=== PATIENT | female | born 1990 | race Caucasian/White ===

== ENCOUNTER 2016-05-03 07:48 | Inpatient (IN) | payer BC ==
--- NOTE | 2016-05-03 10:36 | PCM.LDHP ---
L&D History of Present Illness - General Date of Service: 05/03/16 Admit Problem/Dx: Admission Diagnosis/Problem Admission Diagnosis/Problem Source of Information: Patient History Limitations: Reports: No limitations - History of Present Illness Introduction:: 25 y/o JOSE 05/11/16 EGDione 38w6d presented to L&D with contractions, patient sent from clinic after NST non-reactive. Exam performed and rupture of buldging bag of water occurred, cervix 4-5, 90, soft,mid, vtx-1 clear fluid, GBS negative Timing/Duration: Reports: hour(s): Location, : Reports: Abdomen, Lower back Improves with: Reports: None Worsens with: Reports: None Associated Symptoms: Reports: N - Related Data Allergies/Adverse Reactions: Allergies Allergy/AdvReac Type Severity Reaction Status Date / Time amoxicillin [Amoxicillin] Allergy Hives Verified 12/18/13 13:49 Home Medications: Home Meds . 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) Other OB/BYN History: vaginal delivery Social & Family History - Tobacco Use Smoking Status *Q: Never Smoker Years of Tobacco use: 1 Used Tobacco, but Quit: Yes Month Tobacco Last Used: 02/2006 Second Hand Smoke Exposure: No - Alcohol Use Days Per Week of Alcohol Use: 0 - Recreational Drug Use Recreational Drug Use: No H&P Review of Systems - Review of Systems: Review Of Systems: See Below General: Reports: no symptoms HEENT: Reports: no symptoms Pulmonary: Reports: No Symptoms Cardiovascular: Reports: no symptoms Gastrointestinal: Reports: No symptoms Genitourinary: Reports: no symptoms Musculoskeletal: Reports: no symptoms Skin: Reports: no symptoms Psychiatric: Reports: no symptoms Neurological: Reports: No Symptoms Hematologic/Lymphatic: Reports: no symptoms Immunologic: Reports: no symptoms L&D Exam - Exam Exam: See Below - Vital Signs Weight: 166 lb - OB Specific Fundal Height in cm: 38 Contraction Duration (sec): 5 Contraction Frequency (min): 60 Contraction Intensity: Moderate movement: active heart tones: present heart tones per min: 140 Heart Rate (FHR) Variability: Moderate (6-25 bmp) Presentation: Vertex - Mosley Score Mosley Score Cervix Position: Midposition Mosley Score Consistency: Soft Mosley Score Effacement: >80% Mosley Score Dilation: > 5 cm Mosley Score 's Station: -1 ,0 Mosley Score Total: 11 - Exam General: alert, oriented HEENT: Mucosa moist & pink Neck: supple, trachea midline Lungs: Clear to auscultation, Normal respiratory effort Cardiovascular: regular rate, regular rhythm Abdomen: normal bowel sounds, soft Genitourinary: Normal external exam Extremities: normal inspection Skin: warm, dry, intact Psychiatric: alert, normal affect, normal mood - Patient Data Lab Results last 24 hrs: Laboratory Results - last 24 hr 05/03/16 Range/Units 08:25 Urine Color Yellow (Yellow) Urine Appearance Clear (Clear) Urine pH 7.0 (5.0-8.0) Ur Specific [place] 1.015 (1.005-1.030) Urine Protein Negative (Negative) Urine Glucose (UA) Negative (Negative) Urine Ketones Negative (Negative) Urine Occult Blood Trace-intact H (Negative) Urine Nitrite Negative (Negative) Urine Bilirubin Negative (Negative) Urine Urobilinogen 0.2 (0.2-1.0) Ur Leukocyte Esterase Negative (Negative) - Problem List (1) 38 weeks gestation of SNOMED Code(s): 33888172 ICD Code: Z3A.38 - 38 WEEKS GESTATION OF Status: Acute Current Visit: Yes Problem List Initiated/Reviewed/Updated: No Assessment/Plan Comment:: plan delivery
[2016-05-03] MEDS ORDERED: Nalbuphine 20 MG/1 ML Amp IVPUSH PRN (10:37)
[2016-05-03] MEDS ORDERED: Ondansetron 4 MG/2 ML SDV IVPUSH PRN ×2 (10:37→11:31)
[2016-05-03] MEDS ORDERED: Sodium Chloride 0.9% 10 ML Syringe FLUSH PRN (10:37)
[2016-05-03] MEDS ORDERED: Lactated Ringers 1,000 ML IV SCH (10:45)
[2016-05-03] MEDS ORDERED: Oxytocin/Lactated Ringers 10 UNIT/1,000 ML BAG IV SCH ×2 (10:45→14:30)
[2016-05-03] MEDS: Lactated Ringers 1,000 ML ONE ×2 (10:51→10:54)
--- NOTE | 2016-05-03 10:55 | PCM.PREANE ---
Preanesthetic Assessment - Anesthesia/Transfusion/Family Hx Anesthesia History: Prior Anesthesia Without Reaction Family History of Anesthesia Reaction: No - Review of Systems General: No Symptoms Pulmonary: No Symptoms (ASTHMA- does not use inhaler ) Cardiovascular: No Symptoms Gastrointestinal: No symptoms Neurological: No Symptoms Other: Reports: Diabetes (gestational ) - Physical Assessment NPO Status Date: 05/02/16 NPO Status Time: 10:30 Pulse: 92 O2 Sat by Pulse Oximetry: 98 Respiratory Rate: 16 Blood Pressure: 128/70 Temperature: 36.9 C Height: 1.63 m Weight: 75.296 kg ASA Class: 2 Mental Status: Alert & Oriented x3 Airway Class: Mallampati = 1 Dentition: Reports: Normal Dentition Thyro-Mental Finger Breadths: 3 Mouth Opening Finger Breadths: 3 ROM/Head Extension: Full Lungs: Clear to auscultation, Normal respiratory effort Cardiovascular: Regular Rate, Regular Rhythm - Lab Values: Laboratory Last Values Urine Color Yellow (Yellow) 05/03/16 08:25 Urine Appearance Clear (Clear) 05/03/16 08:25 Urine pH 7.0 (5.0-8.0) 05/03/16 08:25 Ur Specific [place] 1.015 (1.005-1.030) 05/03/16 08:25 Urine Protein Negative (Negative) 05/03/16 08:25 Urine Glucose (UA) Negative (Negative) 05/03/16 08:25 Urine Ketones Negative (Negative) 05/03/16 08:25 Urine Occult Blood Trace-intact (Negative) H 05/03/16 08:25 Urine Nitrite Negative (Negative) 05/03/16 08:25 Urine Bilirubin Negative (Negative) 05/03/16 08:25 Urine Urobilinogen 0.2 (0.2-1.0) 05/03/16 08:25 Ur Leukocyte Esterase Negative (Negative) 05/03/16 08:25 - Allergies Allergies/Adverse Reactions: Allergies Allergy/AdvReac Type Severity Reaction Status Date / Time amoxicillin [Amoxicillin] Allergy Hives Verified 12/18/13 13:49 - Blood Blood Available: No Product(s) Available: None - Anesthesia Plan Pre-Op Medication Ordered: None - Acknowledgements Anesthesia Type Planned: Epidural Pt an Appropriate Candidate for the Planned Anesthesia: Yes Alternatives and Risks of Anesthesia Discussed w Pt/Guardian: Yes Pt/Guardian Understands and Agrees with Anesthesia Plan: Yes PreAnesthesia Questionnaire - Past Health History Medical/Surgical History: Denies 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 [No Known Home Meds] 02/16/15 [History] - CURRENT (IN HOUSE) MEDS Current Meds: Current Medications Lactated Ringer's (Ringers, Lactated) 1,000 mls @ 100 mls/hr IV ASDIRECTED MARGOTH Oxytocin/Lactated Ringer's (Pitocin In Lr 10 Units/1,000 Ml) 10 unit in 1,000 mls @ 500 mls/hr IV TITRATE MARGOTH Clindamycin Phosphate 900 mg/ (Sodium Chloride) 106 mls @ 100 mls/hr IV Q8H MARGOTH Nalbuphine HCl (Nubain) 10 mg IVPUSH Q2H PRN PRN Reason: Pain (moderate 4-6) Ondansetron HCl (Zofran) 4 mg IVPUSH Q4H PRN PRN Reason: Nausea/Vomiting Sodium Chloride (Saline Flush) 10 ml FLUSH ASDIRECTED PRN PRN Reason: Keep Vein Open Discontinued Medications Lactated Ringer's (Ringers, Lactated) Confirm Administered Dose 1,000 mls @ as directed .ROUTE .STK-MED ONE Stop: 05/03/16 10:31 Preanesthetic Assessment - ANESTHESIA/TRANSFUSION/FAMILY HX Anesthesia/Transfusion History: No Prior Anesthesia, No Prior Transfusion(s) Family History of Anesthesia Reaction: No Intubation History: Unknown - PHYSICAL ASSESSMENT Height: 1.63 m Weight: 75.296 kg - LAB Values: Laboratory Last Values Urine Color Yellow (Yellow) 05/03/16 08:25 Urine Appearance Clear (Clear) 05/03/16 08:25 Urine pH 7.0 (5.0-8.0) 05/03/16 08:25 Ur Specific [place] 1.015 (1.005-1.030) 05/03/16 08:25 Urine Protein Negative (Negative) 05/03/16 08:25 Urine Glucose (UA) Negative (Negative) 05/03/16 08:25 Urine Ketones Negative (Negative) 05/03/16 08:25 Urine Occult Blood Trace-intact (Negative) H 05/03/16 08:25 Urine Nitrite Negative (Negative) 05/03/16 08:25 Urine Bilirubin Negative (Negative) 05/03/16 08:25 Urine Urobilinogen 0.2 (0.2-1.0) 05/03/16 08:25 Ur Leukocyte Esterase Negative (Negative) 05/03/16 08:25 - ALLERGIES Allergies/Adverse Reactions: Allergies Allergy/AdvReac Type Severity Reaction Status Date / Time amoxicillin [Amoxicillin] Allergy Hives Verified 12/18/13 13:49
[2016-05-03] MEDS ORDERED: Clindamycin Phosphate 900 MG in Sodium Chloride 0.9% 100 ML IV SCH (11:00)
[2016-05-03] MEDS ORDERED: fentaNYL 100 MCG/2 ML SDV EPIDUR PRN ×2 (11:31→12:02)
[2016-05-03] MEDS ORDERED: ePHEDrine 50 MG/ML SDV IVPUSH PRN ×2 (11:31→12:02)
[2016-05-03] MEDS ORDERED: diphenhydrAMINE 50 MG/ML SDV IVPUSH PRN ×2 (11:31→12:02)
[2016-05-03] MEDS ORDERED: Bupivacaine/fentaNYL/NS 100 ML Bag EPIDUR SCH ×2 (11:45→12:15)
--- NOTE | 2016-05-03 15:29 | PCM.SN ---
- Free Text/Narrative Note: Cervix 8/100/soft/anterior. Vertex -1/-2 Cat I FHR with early decelerations. Head, beginning to descend into the pelvis
--- NOTE | 2016-05-03 16:56 | PCM.DEL ---
L & D Note - General Info Date of Service: 05/03/16 - Delivery Note Labor: spontaneous, augmented by ARM, augmented by oxytocin Delivery Outcome: Livebirth (Female liveborn JOJO daily [birth year]/03[birth year]2016 delivered at 1636, Apgars 8/9. Weight pending. Mother holding ) Infant Delivery Method: Spontaneous Vaginal Delivery Delivery Mode: Spontaneous Presentation: Right Occiput Anterior (JOJO) Nuchal cord: none Prep: povidone-iodine (betadine Anesthesia Type: Epidural Episiotomy Type: None Laceration: none Placenta: intact, spontaneous (Placenta delivered, Jeb at 1642 , intact exam and discarded. Eccentric cord insertion) Cord: 3 vessels Estimated blood loss: 250 Resuscitation needed: No [place]: suctioned, bulb syringe, stimulated, warmed, blanket used, warmer used Provider: Arvind García Score 1 min: 8 Score 5 min: 9 - Patient Data Vitals - most recent: Last Vital Signs Temp 98.4 F 05/03/16 11:02 Pulse 92 05/03/16 11:02 Resp 16 05/03/16 11:02 BP 128/70 05/03/16 11:02 Pulse Ox 98 05/03/16 11:02 Weight - most recent: 166 lb I&O - last 24 hours: Intake & Output 05/03/16 05/03/16 05/03/16 06:59 14:59 22:59 Intake Total 120 Balance 120 Lab Results last 24 hrs: Laboratory Results - last 24 hr 05/03/16 05/03/16 05/03/16 Range/Units 08:25 10:50 10:50 WBC 10.71 H (3.98-10.04) K/mm3 RBC 4.68 (3.98-5.22) M/mm3 Hgb 14.7 (11.2-15.7) gm/L Hct 44.7 (34.1-44.9) % MCV 95.5 H (79.4-94.8) fl MCH 31.4 (25.6-32.2) pg MCHC 32.9 (32.2-35.5) g/dl RDW Std Deviation 52.8 H (36.4-46.3) fL Plt Count 202 (182-369) K/mm3 MPV 10.0 (9.4-12.3) fl Neut % (Auto) 78.1 H (34.0-71.1) % Lymph % (Auto) 14.5 L (19.3-51.7) % [place] % (Auto) 6.8 (4.7-12.5) % Eos % (Auto) 0.3 L (0.7-5.8) Baso % (Auto) 0.1 (0.1-1.2) % Neut # 8.37 H (1.56-6.13) K/mm3 Lymph # 1.55 (1.18-3.74) K/mm3 [place] # 0.73 H (0.24-0.36) K/mm3 Eos # 0.03 L (0.04-0.36) K/mm3 Baso # 0.01 (0.01-0.08) K/mm3 Urine Color Yellow (Yellow) Urine Appearance Clear (Clear) Urine pH 7.0 (5.0-8.0) Ur Specific [place] 1.015 (1.005-1.030) Urine Protein Negative (Negative) Urine Glucose (UA) Negative (Negative) Urine Ketones Negative (Negative) Urine Occult Blood Trace-intact H (Negative) Urine Nitrite Negative (Negative) Urine Bilirubin Negative (Negative) Urine Urobilinogen 0.2 (0.2-1.0) Ur Leukocyte Esterase Negative (Negative) Blood Type A POSITIVE Gel Antibody Screen Negative Med Orders - Current: Current Medications Diphenhydramine HCl (Benadryl) 25 mg IVPUSH Q6H PRN PRN Reason: Pruritis Diphenhydramine HCl (Benadryl) 25 mg IVPUSH Q6H PRN PRN Reason: pruritis Ephedrine Sulfate (Ephedrine Sulfate) 5 mg IVPUSH ASDIRECTED PRN PRN Reason: Hypotension Ephedrine Sulfate (Ephedrine Sulfate) 5 mg IVPUSH ASDIRECTED PRN PRN Reason: Hypotension Fentanyl (Sublimaze) 100 mcg EPIDUR Q3H PRN PRN Reason: Pain Last Admin: 05/03/16 12:55 Dose: 100 mcg Fentanyl (Sublimaze) 100 mcg EPIDUR Q3H PRN PRN Reason: Pain Fentanyl/Bupivacaine HCl (Fentanyl/Bupivacaine/Ns 2 Mcg-0.125% 100 Ml) 100 ml EPIDUR ASDIRECTED MARGOTH Last Admin: 05/03/16 12:56 Dose: 100 ml Fentanyl/Bupivacaine HCl (Fentanyl/Bupivacaine/Ns 2 Mcg-0.125% 100 Ml) 100 ml EPIDUR ASDIRECTED MARGOTH Lactated Ringer's (Ringers, Lactated) 1,000 mls @ 100 mls/hr IV ASDIRECTED MARGOTH Last Admin: 05/03/16 15:07 Dose: 100 mls/hr Oxytocin/Lactated Ringer's (Pitocin In Lr 10 Units/1,000 Ml) 10 unit in 1,000 mls @ 500 mls/hr IV TITRATE MARGOTH Clindamycin Phosphate 900 mg/ (Sodium Chloride) 106 mls @ 100 mls/hr IV Q8H MARGOTH Last Admin: 05/03/16 11:02 Dose: 100 mls/hr Oxytocin/Lactated Ringer's (Pitocin In Lr 10 Units/1,000 Ml) 10 unit in 1,000 mls @ 12 mls/hr IV TITRATE MARGOTH; 2 MUNITS/MIN PRN Reason: Protocol Last Admin: 05/03/16 14:37 Dose: 2 munits/min, 12 mls/hr Nalbuphine HCl (Nubain) 10 mg IVPUSH Q2H PRN PRN Reason: Pain (moderate 4-6) Ondansetron HCl (Zofran) 4 mg IVPUSH Q4H PRN PRN Reason: Nausea/Vomiting Ondansetron HCl (Zofran) 4 mg IVPUSH ONETIME PRN PRN Reason: Nausea/Vomiting Sodium Chloride (Saline Flush) 10 ml FLUSH ASDIRECTED PRN PRN Reason: Keep Vein Open Discontinued Medications Lactated Ringer's (Ringers, Lactated) Confirm Administered Dose 1,000 mls @ as directed .ROUTE .STK-MED ONE Stop: 05/03/16 10:31 Last Admin: 05/03/16 10:54 Dose: Not Given - Problem List & Annotations (1) 38 weeks gestation of SNOMED Code(s): 01724645 Code(s): Z3A.38 - 38 WEEKS GESTATION OF Status: Acute Current Visit: Yes (2) Normal delivery at term SNOMED Code(s): 08405296 Code(s): O80 - ENCOUNTER FOR FULL-TERM UNCOMPLICATED DELIVERY Status: Acute Current Visit: Yes - Problem List Review Problem List Initiated/Reviewed/Updated: No - My Orders Last 24 Hours: My Active Orders 05/03/16 10:37 Patient Status [ADT] Routine Activity as Tolerated [RC] PFP Communication Order [RC] ASDIRECTED Notify Provider [RC] PFP Notify Provider [RC] PRN Vital Signs [RC] PER UNIT ROUTINE Nalbuphine [Nubain] 10 mg IVPUSH Q2H PRN Ondansetron [Zofran] 4 mg IVPUSH Q4H PRN Sodium Chloride 0.9% [Saline Flush] 10 ml FLUSH ASDIRECTED PRN Electronic Heart Tones Ext w TOCO [WOMSER] Routine Electronic Heart Tones Internal [WOMSER] Per Unit Routine Peripheral IV Insertion Adult [OM.PC] Routine Resuscitation Status Routine 05/03/16 10:38 Heart Tones [RC] ASDIRECTED Peripheral IV Care [RC] . DIRECTED 05/03/16 10:45 Lactated Ringers [Ringers, Lactated] 1,000 ml IV ASDIRECTED Oxytocin/Lactated Ringers [Pitocin in LR 10 Units/1,000 ML] 10 unit in 1,000 ml IV TITRATE 05/03/16 11:00 Clindamycin Phosphate [Cleocin] 900 mg Sodium Chloride 0.9% [Normal Saline] 100 ml IV Q8H 05/03/16 14:30 Oxytocin/Lactated Ringers [Pitocin in LR 10 Units/1,000 ML] 10 unit in 1,000 ml IV TITRATE 05/03/16 Lunch Clear Liquid Diet [DIET] - Plan Plan:: plan delivery
[2016-05-03] MEDS ORDERED: Benzocaine/Menthol 20%-0.5% Spray 56 GM Canister TOP PRN (17:34)
[2016-05-03] MEDS ORDERED: Witch Hazel Medicated Pads 100/Jar TOP PRN (17:34)
[2016-05-03] MEDS ORDERED: Acetaminophen/oxyCODONE 325-5 MG Tab PO PRN (17:34)
[2016-05-03] MEDS ORDERED: Lanolin 100% Cream 7 GM Tube TOP PRN (17:34)
[2016-05-03] MEDS ORDERED: Diphtheria,Pertussis(Acell),Tetanus Vaccine 0.5 ML SDV inactive IM ONE (19:22)
[2016-05-03] MEDS: Acetaminophen 325 MG Tab PO PRN (21:31)
[2016-05-04] MEDS: Ibuprofen 600 MG Tab PO PRN ×4 (05:08→22:52)
--- NOTE | 2016-05-04 07:32 | PCM48HPAN ---
Post Anesthesia Note - EVALUATION WITHIN 48HRS OF ANESTHETIC Vital Signs in Normal Range: Yes Patient Participated in Evaluation: Yes Respiratory Function Stable: Yes Airway Patent: Yes Cardiovascular Function Stable: Yes Hydration Status Stable: Yes Pain Control Satisfactory: Yes Nausea and Vomiting Control Satisfactory: Yes Mental Status Recovered: Yes - COMMENTS/OBSERVATIONS Free Text/Narrative:: 0710 05/04/2016 patient states, "slight numbness to top of my left thigh yet" encouragement given
--- NOTE | 2016-05-04 07:48 | PCM.DCSUM1 ---
Discharge Summary - Hospital Course Free Text/Narrative:: [facility] LIVE L/D Delivery Note Patient Name: QASIM BRASWELL Date of : 86 Patient Status: Inpatient Attending Provider: Arvind García Date: 05/03/16 16:49 Initialization Date: 05/03/16 16:49 L & D Note - General Info Date of Service: 05/03/16 - Delivery Note Labor: spontaneous, augmented by ARM, augmented by oxytocin Delivery Outcome: Livebirth (Female liveborn JOJO daily 05/03/2016 delivered at 1636, Apgars 8/9. Weight pending. Mother holding ) Delivery Method: Spontaneous Vaginal Delivery Infant Delivery Mode: Spontaneous Presentation: Right Occiput Anterior (JOJO) Nuchal cord: none Prep: povidone-iodine (betadine Anesthesia Type: Epidural Episiotomy Type: None Laceration: none Placenta: intact, spontaneous (Placenta delivered, Jeb at 1642 , intact exam and discarded. Eccentric cord insertion) Cord: 3 vessels Estimated blood loss: 250 Resuscitation needed: No [place]: suctioned, bulb syringe, stimulated, warmed, blanket used, warmer used Provider: Arvind García Score 1 min: 8 Score 5 min: 9 - Patient Data Vitals - most recent: Last Vital Signs Temp 98.4 F 05/03/16 11:02 Pulse 92 05/03/16 11:02 Resp 16 05/03/16 11:02 BP 128/70 05/03/16 11:02 Pulse Ox 98 05/03/16 11:02 Weight - most recent: 166 lb I&O - last 24 hours: Intake & Output 05/03/16 05/03/16 05/03/16 06:59 14:59 22:59 Intake Total 120 Balance 120 Lab Results last 24 hrs: Laboratory Results - last 24 hr 05/03/16 05/03/16 05/03/16 Range/Units 08:25 10:50 10:50 WBC 10.71 H (3.98-10.04) K/mm3 RBC 4.68 (3.98-5.22) M/mm3 Hgb 14.7 (11.2-15.7) gm/L Hct 44.7 (34.1-44.9) % MCV 95.5 H (79.4-94.8) fl MCH 31.4 (25.6-32.2) pg MCHC 32.9 (32.2-35.5) g/dl RDW Std Deviation 52.8 H (36.4-46.3) fL Plt Count 202 (182-369) K/mm3 MPV 10.0 (9.4-12.3) fl Neut % (Auto) 78.1 H (34.0-71.1) % Lymph % (Auto) 14.5 L (19.3-51.7) % [place] % (Auto) 6.8 (4.7-12.5) % Eos % (Auto) 0.3 L (0.7-5.8) Baso % (Auto) 0.1 (0.1-1.2) % Neut # 8.37 H (1.56-6.13) K/mm3 Lymph # 1.55 (1.18-3.74) K/mm3 [place] # 0.73 H (0.24-0.36) K/mm3 Eos # 0.03 L (0.04-0.36) K/mm3 Baso # 0.01 (0.01-0.08) K/mm3 Urine Color Yellow (Yellow) Urine Appearance Clear (Clear) Urine pH 7.0 (5.0-8.0) Ur Specific [place] 1.015 (1.005-1.030) Urine Protein Negative (Negative) Urine Glucose (UA) Negative (Negative) Urine Ketones Negative (Negative) Urine Occult Blood Trace-intact H (Negative) Urine Nitrite Negative (Negative) Urine Bilirubin Negative (Negative) Urine Urobilinogen 0.2 (0.2-1.0) Ur Leukocyte Esterase Negative (Negative) Blood Type A POSITIVE Gel Antibody Screen Negative Med Orders - Current: Current Medications Diphenhydramine HCl (Benadryl) 25 mg IVPUSH Q6H PRN PRN Reason: Pruritis Diphenhydramine HCl (Benadryl) 25 mg IVPUSH Q6H PRN PRN Reason: pruritis Ephedrine Sulfate (Ephedrine Sulfate) 5 mg IVPUSH ASDIRECTED PRN PRN Reason: Hypotension Ephedrine Sulfate (Ephedrine Sulfate) 5 mg IVPUSH ASDIRECTED PRN PRN Reason: Hypotension Fentanyl (Sublimaze) 100 mcg EPIDUR Q3H PRN PRN Reason: Pain Last Admin: 05/03/16 12:55 Dose: 100 mcg Fentanyl (Sublimaze) 100 mcg EPIDUR Q3H PRN PRN Reason: Pain Fentanyl/Bupivacaine HCl (Fentanyl/Bupivacaine/Ns 2 Mcg-0.125% 100 Ml) 100 ml EPIDUR ASDIRECTED MARGOTH Last Admin: 05/03/16 12:56 Dose: 100 ml Fentanyl/Bupivacaine HCl (Fentanyl/Bupivacaine/Ns 2 Mcg-0.125% 100 Ml) 100 ml EPIDUR ASDIRECTED MARGOTH Lactated Ringer's (Ringers, Lactated) 1,000 mls @ 100 mls/hr IV ASDIRECTED MARGOTH Last Admin: 05/03/16 15:07 Dose: 100 mls/hr Oxytocin/Lactated Ringer's (Pitocin In Lr 10 Units/1,000 Ml) 10 unit in 1,000 mls @ 500 mls/hr IV TITRATE [facility] Clindamycin Phosphate 900 mg/ (Sodium Chloride) 106 mls @ 100 mls/hr IV Q8H MARGOTH Last Admin: 05/03/16 11:02 Dose: 100 mls/hr Oxytocin/Lactated Ringer's (Pitocin In Lr 10 Units/1,000 Ml) 10 unit in 1,000 mls @ 12 mls/hr IV TITRATE [facility]; 2 MUNITS/MIN PRN Reason: Protocol Last Admin: 05/03/16 14:37 Dose: 2 munits/min, 12 mls/hr Nalbuphine HCl (Nubain) 10 mg IVPUSH Q2H PRN PRN Reason: Pain (moderate 4-6) Ondansetron HCl (Zofran) 4 mg IVPUSH Q4H PRN PRN Reason: Nausea/Vomiting Ondansetron HCl (Zofran) 4 mg IVPUSH ONETIME PRN PRN Reason: Nausea/Vomiting Sodium Chloride (Saline Flush) 10 ml FLUSH ASDIRECTED PRN PRN Reason: Keep Vein Open Discontinued Medications Lactated Ringer's (Ringers, Lactated) Confirm Administered Dose 1,000 mls @ as directed .ROUTE [facility] ONE Stop: 05/03/16 10:31 Last Admin: 05/03/16 10:54 Dose: Not Given - Problem List & Annotations (1) 38 weeks gestation of SNOMED Code(s): 00534133 Code(s): Z3A.38 - 38 WEEKS GESTATION OF Status: Acute Current Visit: Yes (2) Normal delivery at term SNOMED Code(s): 32850191 Code(s): O80 - ENCOUNTER FOR FULL-TERM UNCOMPLICATED DELIVERY Status: Acute Current Visit: Yes - Problem List Review Problem List Initiated/Reviewed/Updated: No - My Orders Last 24 Hours: My Active Orders 05/03/16 10:37 Patient Status [ADT] Routine Activity as Tolerated [RC] PFP Communication Order [RC] ASDIRECTED Notify Provider [RC] PFP Notify Provider [RC] PRN Vital Signs [RC] PER UNIT ROUTINE Nalbuphine [Nubain] 10 mg IVPUSH Q2H PRN Ondansetron [Zofran] 4 mg IVPUSH Q4H PRN Sodium Chloride 0.9% [Saline Flush] 10 ml FLUSH ASDIRECTED PRN Electronic Heart Tones Ext w TOCO [WOMSER] Routine Electronic Heart Tones Internal [WOMSER] Per Unit Routine Peripheral IV Insertion Adult [OM.PC] Routine Resuscitation Status Routine 05/03/16 10:38 Heart Tones [RC] ASDIRECTED Peripheral IV Care [RC] . DIRECTED 05/03/16 10:45 Lactated Ringers [Ringers, Lactated] 1,000 ml IV ASDIRECTED Oxytocin/Lactated Ringers [Pitocin in LR 10 Units/1,000 ML] 10 unit in 1,000 ml IV TITRATE 05/03/16 11:00 Clindamycin Phosphate [Cleocin] 900 mg Sodium Chloride 0.9% [Normal Saline] 100 ml IV Q8H 05/03/16 14:30 Oxytocin/Lactated Ringers [Pitocin in LR 10 Units/1,000 ML] 10 unit in 1,000 ml IV TITRATE 05/03/16 Lunch Clear Liquid Diet [DIET] - Plan Plan:: plan delivery HPI Initial Comments: [facility] LIVE L/D Delivery Note Patient Name: QASIM BRASWELL Date of : 86 Patient Status: Inpatient Attending Provider: Arvind García Date: 05/03/16 16:49 Initialization Date: 05/03/16 16:49 L & D Note - General Info Date of Service: 05/03/16 - Delivery Note Labor: spontaneous, augmented by ARM, augmented by oxytocin Delivery Outcome: Livebirth (Female liveborn JOJO daily 05/03/2016 delivered at 1636, Apgars 8/9. Weight pending. Mother holding ) Infant Delivery Method: Spontaneous Vaginal Delivery Delivery Mode: Spontaneous Presentation: Right Occiput Anterior (JOJO) Nuchal cord: none Prep: povidone-iodine (betadine Anesthesia Type: Epidural Episiotomy Type: None Laceration: none Placenta: intact, spontaneous (Placenta delivered, Jeb at 1642 3, intact exam and discarded. Eccentric cord insertion) Cord: 3 vessels Estimated blood loss: 250 Resuscitation needed: No [place]: suctioned, bulb syringe, stimulated, warmed, blanket used, warmer used Provider: Arvind García Score 1 min: 8 Score 5 min: 9 - Patient Data Vitals - most recent: Last Vital Signs Temp 98.4 F 05/03/16 11:02 Pulse 92 05/03/16 11:02 Resp 16 05/03/16 11:02 BP 128/70 05/03/16 11:02 Pulse Ox 98 05/03/16 11:02 Weight - most recent: 166 lb I&O - last 24 hours: Intake & Output 05/03/16 05/03/16 05/03/16 06:59 14:59 22:59 Intake Total 120 Balance 120 Lab Results last 24 hrs: Laboratory Results - last 24 hr 05/03/16 05/03/16 05/03/16 Range/Units 08:25 10:50 10:50 WBC 10.71 H (3.98-10.04) K/mm3 RBC 4.68 (3.98-5.22) M/mm3 Hgb 14.7 (11.2-15.7) gm/L Hct 44.7 (34.1-44.9) % MCV 95.5 H (79.4-94.8) fl MCH 31.4 (25.6-32.2) pg MCHC 32.9 (32.2-35.5) g/dl RDW Std Deviation 52.8 H (36.4-46.3) fL Plt Count 202 (182-369) K/mm3 MPV 10.0 (9.4-12.3) fl Neut % (Auto) 78.1 H (34.0-71.1) % Lymph % (Auto) 14.5 L (19.3-51.7) % [place] % (Auto) 6.8 (4.7-12.5) % Eos % (Auto) 0.3 L (0.7-5.8) Baso % (Auto) 0.1 (0.1-1.2) % Neut # 8.37 H (1.56-6.13) K/mm3 Lymph # 1.55 (1.18-3.74) K/mm3 [place] # 0.73 H (0.24-0.36) K/mm3 Eos # 0.03 L (0.04-0.36) K/mm3 Baso # 0.01 (0.01-0.08) K/mm3 Urine Color Yellow (Yellow) Urine Appearance Clear (Clear) Urine pH 7.0 (5.0-8.0) Ur Specific [place] 1.015 (1.005-1.030) Urine Protein Negative (Negative) Urine Glucose (UA) Negative (Negative) Urine Ketones Negative (Negative) Urine Occult Blood Trace-intact H (Negative) Urine Nitrite Negative (Negative) Urine Bilirubin Negative (Negative) Urine Urobilinogen 0.2 (0.2-1.0) Ur Leukocyte Esterase Negative (Negative) Blood Type A POSITIVE Gel Antibody Screen Negative Med Orders - Current: Current Medications Diphenhydramine HCl (Benadryl) 25 mg IVPUSH Q6H PRN PRN Reason: Pruritis Diphenhydramine HCl (Benadryl) 25 mg IVPUSH Q6H PRN PRN Reason: pruritis Ephedrine Sulfate (Ephedrine Sulfate) 5 mg IVPUSH ASDIRECTED PRN PRN Reason: Hypotension Ephedrine Sulfate (Ephedrine Sulfate) 5 mg IVPUSH ASDIRECTED PRN PRN Reason: Hypotension Fentanyl (Sublimaze) 100 mcg EPIDUR Q3H PRN PRN Reason: Pain Last Admin: 05/03/16 12:55 Dose: 100 mcg Fentanyl (Sublimaze) 100 mcg EPIDUR Q3H PRN PRN Reason: Pain Fentanyl/Bupivacaine HCl (Fentanyl/Bupivacaine/Ns 2 Mcg-0.125% 100 Ml) 100 ml EPIDUR ASDIRECTED MARGOTH Last Admin: 05/03/16 12:56 Dose: 100 ml Fentanyl/Bupivacaine HCl (Fentanyl/Bupivacaine/Ns 2 Mcg-0.125% 100 Ml) 100 ml EPIDUR ASDIRECTED MARGOTH Lactated Ringer's (Ringers, Lactated) 1,000 mls @ 100 mls/hr IV ASDIRECTED MARGOTH Last Admin: 05/03/16 15:07 Dose: 100 mls/hr Oxytocin/Lactated Ringer's (Pitocin In Lr 10 Units/1,000 Ml) 10 unit in 1,000 mls @ 500 mls/hr IV TITRATE MARGOTH Clindamycin Phosphate 900 mg/ (Sodium Chloride) 106 mls @ 100 mls/hr IV Q8H MARGOTH Last Admin: 05/03/16 11:02 Dose: 100 mls/hr Oxytocin/Lactated Ringer's (Pitocin In Lr 10 Units/1,000 Ml) 10 unit in 1,000 mls @ 12 mls/hr IV TITRATE MARGOTH; 2 MUNITS/MIN PRN Reason: Protocol Last Admin: 05/03/16 14:37 Dose: 2 munits/min, 12 mls/hr Nalbuphine HCl (Nubain) 10 mg IVPUSH Q2H PRN PRN Reason: Pain (moderate 4-6) Ondansetron HCl (Zofran) 4 mg IVPUSH Q4H PRN PRN Reason: Nausea/Vomiting Ondansetron HCl (Zofran) 4 mg IVPUSH ONETIME PRN PRN Reason: Nausea/Vomiting Sodium Chloride (Saline Flush) 10 ml FLUSH ASDIRECTED PRN PRN Reason: Keep Vein Open Discontinued Medications Lactated Ringer's (Ringers, Lactated) Confirm Administered Dose 1,000 mls @ as directed .ROUTE .STK-MED ONE Stop: 05/03/16 10:31 Last Admin: 05/03/16 10:54 Dose: Not Given - Problem List & Annotations (1) 38 weeks gestation of SNOMED Code(s): 14033612 Code(s): Z3A.38 - 38 WEEKS GESTATION OF Status: Acute Current Visit: Yes (2) Normal delivery at term SNOMED Code(s): 03347307 Code(s): O80 - ENCOUNTER FOR FULL-TERM UNCOMPLICATED DELIVERY Status: Acute Current Visit: Yes - Problem List Review Problem List Initiated/Reviewed/Updated: No - My Orders Last 24 Hours: My Active Orders 05/03/16 10:37 Patient Status [ADT] Routine Activity as Tolerated [RC] PFP Communication Order [RC] ASDIRECTED Notify Provider [RC] PFP Notify Provider [RC] PRN Vital Signs [RC] PER UNIT ROUTINE Nalbuphine [Nubain] 10 mg IVPUSH Q2H PRN Ondansetron [Zofran] 4 mg IVPUSH Q4H PRN Sodium Chloride 0.9% [Saline Flush] 10 ml FLUSH ASDIRECTED PRN Electronic Heart Tones Ext w TOCO [WOMSER] Routine Electronic Heart Tones Internal [WOMSER] Per Unit Routine Peripheral IV Insertion Adult [OM.PC] Routine Resuscitation Status Routine 05/03/16 10:38 Heart Tones [RC] ASDIRECTED Peripheral IV Care [RC] . DIRECTED 05/03/16 10:45 Lactated Ringers [Ringers, Lactated] 1,000 ml IV ASDIRECTED Oxytocin/Lactated Ringers [Pitocin in LR 10 Units/1,000 ML] 10 unit in 1,000 ml IV TITRATE 05/03/16 11:00 Clindamycin Phosphate [Cleocin] 900 mg Sodium Chloride 0.9% [Normal Saline] 100 ml IV Q8H 05/03/16 14:30 Oxytocin/Lactated Ringers [Pitocin in LR 10 Units/1,000 ML] 10 unit in 1,000 ml IV TITRATE 05/03/16 Lunch Clear Liquid Diet [DIET] - Plan Plan:: plan delivery Brief History: [facility] LIVE . L/D Delivery Note. Patient Name: QASIM BRASWELL Record Number: [id number]. Date of : Patient Status: Inpatient. Attending Provider: Arvind García Number: [id number]. Date: 05/03/16 16:49Initialization Date: 05/03/16 16:49. L & D Note. - General Info. Date of Service: 05/03/16. - Delivery Note. Labor: spontaneous, augmented by ARM, augmented by oxytocin. Delivery Outcome: Livebirth (Female liveborn JOJO daily 05/03/2016 delivered at 1636, Apgars 8/9. Weight pending. Mother holding ). Delivery Method: Spontaneous Vaginal Delivery. Delivery Mode: Spontaneous. Presentation: Right Occiput Anterior (JOJO). Nuchal cord: none. Prep: povidone-iodine ( betadine. Anesthesia Type: Epidural. Episiotomy Type: None. Laceration: none. Placenta: intact, spontaneous (Placenta delivered, Jeb at 1642 [id number], intact exam and discarded. Eccentric cord insertion). Cord: 3 vessels. Estimated blood loss: 250. Resuscitation needed: No. : suctioned, bulb syringe, stimulated, warmed, blanket used, warmer used. Provider: Arvind García. Score 1 min: 8. Score 5 min: 9. - Patient Data. Vitals - most recent: Last Vital Signs. Temp 98.4 F 05/03/16 11:02. Pulse 92 05/03/16 11:02. Resp 16 05/03/16 11:02. BP 128/70 05/03/16 11:02. Pulse Ox 98 05/03/16 11:02. Weight - most recent: 166 lb. I&O - last 24 hours: Intake & Output. 05/03/1702. 06:5914:5922:59. Intake [id number]. [id number]. Lab Results last 24 hrs: Laboratory Results - last 24 hr. 05/03/1702Range/Units. 08:2510:5010:50. WBC 10.71 H (3.98- 10.04) K/mm3. RBC 4.68 (3.98-5.22) M/mm3. Hgb 14.7 (11.2-15.7) gm/L. Hct 44.7 (34.1-44.9) %. MCV 95.5 H (79.4-94.8) fl. MCH 31.4 (25.6-32.2) pg. MCHC 32.9 (32.2-35.5) g/dl. RDW Std Deviation 52.8 H (36.4-46.3) fL. Plt Count 202 (182-369) K/mm3. MPV 10.0 (9.4-12.3) fl. Neut % (Auto) 78.1 H ( 34.0-71.1) %. Lymph % (Auto) 14.5 L (19.3-51.7) %. [place] % (Auto) 6.8 (4.7- 12.5) %. Eos % (Auto) 0.3 L (0.7-5.8). Baso % (Auto) 0.1 (0.1-1.2) %. Neut # 8.37 H (1.56-6.13) K/mm3. Lymph # 1.55 (1.18-3.74) K/mm3. [place] # 0.73 H ( 0.24-0.36) K/mm3. Eos # 0.03 L (0.04-0.36) K/mm3. Baso # 0.01 (0.01-0.08) K /mm3. Urine Color Yellow (Yellow). Urine Appearance Clear (Clear). Urine pH 7.0 (5.0-8.0). Ur Specific [place] 1.015 (1.005-1.030). Urine Protein Negative (Negative). Urine Glucose (UA) Negative (Negative). Urine Ketones Negative (Negative). Urine Occult Blood Trace-intact H (Negative). Urine Nitrite Negative (Negative). Urine Bilirubin Negative (Negative). Urine Urobilinogen 0.2 (0.2-1.0). Ur Leukocyte Esterase Negative (Negative). Blood Type A POSITIVE. Gel Antibody Screen Negative. Med Orders - Current: Current Medications. Diphenhydramine HCl (Benadryl) 25 mg IVPUSH Q6H PRN. PRN Reason : Pruritis. Diphenhydramine HCl (Benadryl) 25 mg IVPUSH Q6H PRN. PRN Reason: pruritis. Ephedrine Sulfate (Ephedrine Sulfate) 5 mg IVPUSH ASDIRECTED PRN. PRN Reason: Hypotension. Ephedrine Sulfate (Ephedrine Sulfate) 5 mg IVPUSH ASDIRECTED PRN. PRN Reason: Hypotension. Fentanyl (Sublimaze) 100 mcg EPIDUR Q3H PRN. PRN Reason: Pain. Last Admin: 05/03/16 12:55 Dose: 100 mcg. Fentanyl (Sublimaze) 100 mcg EPIDUR Q3H PRN. PRN Reason: Pain. Fentanyl/ Bupivacaine HCl (Fentanyl/Bupivacaine/Ns 2 Mcg-0.125% 100 Ml) 100 ml EPIDUR ASDIRECTED MARGOTH. Last Admin: 05/03/16 12:56 Dose: 100 ml. Fentanyl/ Bupivacaine HCl (Fentanyl/Bupivacaine/Ns 2 Mcg-0.125% 100 Ml) 100 ml EPIDUR ASDIRECTED MARGOTH. Lactated Ringer's (Ringers, Lactated) 1,000 mls @ 100 mls/hr IV ASDIRECTED MARGOTH. Last Admin: 05/03/16 15:07 Dose: 100 mls/hr. Oxytocin/ Lactated Ringer's (Pitocin In Lr 10 Units/1,000 Ml) 10 unit in 1,000 mls @ 500 mls/hr IV TITRATE MARGOTH. Clindamycin Phosphate 900 mg/ (Sodium Chloride) 106 mls @ 100 mls/hr IV Q8H MARGOTH. Last Admin: 05/03/16 11:02 Dose: 100 mls/hr. Oxytocin/Lactated Ringer's (Pitocin In Lr 10 Units/1,000 Ml) 10 unit in 1,000 mls @ 12 mls/hr IV TITRATE MARGOTH; 2 MUNITS/MIN. PRN Reason: Protocol. Last Admin : 05/03/16 14:37 Dose: 2 munits/min, 12 mls/hr. Nalbuphine HCl (Nubain) 10 mg IVPUSH Q2H PRN. PRN Reason: Pain (moderate 4-6). Ondansetron HCl (Zofran) 4 mg IVPUSH Q4H PRN. PRN Reason: Nausea/Vomiting. Ondansetron HCl (Zofran) 4 mg IVPUSH ONETIME PRN. PRN Reason: Nausea/Vomiting. Sodium Chloride (Saline Flush) 10 ml FLUSH ASDIRECTED PRN. PRN Reason: Keep Vein Open. Discontinued Medications. Lactated Ringer's (Ringers, Lactated) Confirm Administered Dose 1, 000 mls @ as directed .ROUTE .STK-MED ONE. Stop: 05/03/16 10:31. Last Admin: 05/03/16 10:54 Dose: Not Given. - Problem List & Annotations. (1) 38 weeks gestation of . SNOMED Code(s): 61564111. Code(s): Z3A.38 - 38 WEEKS GESTATION OF Status: Acute Current Visit: Yes. (2) Normal delivery at term. SNOMED Code(s): 79379628. Code(s): O80 - ENCOUNTER FOR FULL- TERM UNCOMPLICATED DELIVERY Status: Acute Current Visit: Yes. - Problem List Review. Problem List Initiated/Reviewed/Updated: No. - My Orders. Last 24 Hours: My Active Orders. 05/03/16 10:37. Patient Status [ADT] Routine. Activity as Tolerated [RC] PFP. Communication Order [RC] ASDIRECTED. Notify Provider [RC] PFP. Notify Provider [RC] PRN. Vital Signs [RC] PER UNIT ROUTINE. Nalbuphine [Nubain] 10 mg IVPUSH Q2H PRN. Ondansetron [Zofran] 4 mg IVPUSH Q4H PRN. Sodium Chloride 0.9% [Saline Flush] 10 ml FLUSH ASDIRECTED PRN. Electronic Heart Tones Ext w TOCO [WOMSER] Routine. Electronic Heart Tones Internal [WOMSER] Per Unit Routine. Peripheral IV Insertion Adult [OM.PC] Routine. Resuscitation Status Routine. 05/03/16 10: 38. Heart Tones [RC] ASDIRECTED. Peripheral IV Care [RC] . DIRECTED. 05/03/16 10:45. Lactated Ringers [Ringers, Lactated] 1,000 ml IV ASDIRECTED. Oxytocin/Lactated Ringers [Pitocin in LR 10 Units/1,000 ML] 10 unit in 1,000 ml IV TITRATE. 05/03/16 11:00. Clindamycin Phosphate [Cleocin] 900 mg Sodium Chloride 0.9% [Normal Saline] 100 ml IV Q8H. 05/03/16 14:30. Oxytocin/ Lactated Ringers [Pitocin in LR 10 Units/1,000 ML] 10 unit in 1,000 ml IV TITRATE. 05/03/16 Lunch. Clear Liquid Diet [DIET]. - Plan. Plan:: plan delivery - Discharge Data Discharge Date: 05/04/16 Discharge Disposition: Home, Self-Care 01 Condition: Good - Discharge Diagnosis/Problem(s) (1) 38 weeks gestation of SNOMED Code(s): 53308016 ICD Code: Z3A.38 - 38 WEEKS GESTATION OF Status: Acute Current Visit: Yes (2) Normal delivery at term SNOMED Code(s): 30672879 ICD Code: O80 - ENCOUNTER FOR FULL-TERM UNCOMPLICATED DELIVERY Status: Acute Current Visit: Yes - Patient Summary/Data Complications: None Consults: None Hospital Course: Uneventful - Patient Instructions Diet: Heart Healthy Diet Driving: Do Not Drive Showering/Bathing: May Shower Notify Provider of: Fever, Increased Pain, Swelling and Redness, Drainage, Nausea and/or Vomiting - Discharge Plan Home Medications: Home Meds Acetaminophen [Tylenol] 650 mg PO Q6H PRN #0 tablet 05/04/16 [Rx] Benzocaine/Menthol [Dermoplast Pain Relief [place]] 1 spray TOP ASDIRECTED PRN #0 canister 05/04/16 [Rx] Docusate Sodium [Colace] 100 mg PO BID PRN #0 cap 05/04/16 [Rx] Ibuprofen [IJD: Ibuprofen] 200 - 600 mg PO Q6H PRN #0 tablet 05/04/16 [Rx] Witch Erendira [Tucks] 1 pad TOP ASDIRECTED PRN #0 pad 05/04/16 [Rx] Referrals: Elfego Rizvi MD [Physician] - (Appointment with Dr. Rizvi, in 5-6 weeks) - Discharge Summary/Plan Comment DC Time >30 min.: No - Patient Data Vitals - Most Recent: Last Vital Signs Temp 97.3 F 05/04/16 04:58 Pulse 87 05/04/16 04:58 Resp 16 05/04/16 04:58 BP 115/80 05/04/16 04:58 Pulse Ox 97 05/04/16 04:58 Weight - Most Recent: 166 lb I&O - Last 24 hours: Intake & Output 05/03/16 05/04/16 05/04/16 22:59 06:59 14:59 Intake Total 120 Balance 120 Lab Results - Last 24 hrs: Laboratory Results - last 24 hr 05/03/16 05/03/16 05/03/16 Range/Units 08:25 10:50 10:50 WBC 10.71 H (3.98-10.04) K/mm3 RBC 4.68 (3.98-5.22) M/mm3 Hgb 14.7 (11.2-15.7) gm/L Hct 44.7 (34.1-44.9) % MCV 95.5 H (79.4-94.8) fl MCH 31.4 (25.6-32.2) pg MCHC 32.9 (32.2-35.5) g/dl RDW Std Deviation 52.8 H (36.4-46.3) fL Plt Count 202 (182-369) K/mm3 MPV 10.0 (9.4-12.3) fl Neut % (Auto) 78.1 H (34.0-71.1) % Lymph % (Auto) 14.5 L (19.3-51.7) % [place] % (Auto) 6.8 (4.7-12.5) % Eos % (Auto) 0.3 L (0.7-5.8) Baso % (Auto) 0.1 (0.1-1.2) % Neut # 8.37 H (1.56-6.13) K/mm3 Lymph # 1.55 (1.18-3.74) K/mm3 [place] # 0.73 H (0.24-0.36) K/mm3 Eos # 0.03 L (0.04-0.36) K/mm3 Baso # 0.01 (0.01-0.08) K/mm3 Urine Color Yellow (Yellow) Urine Appearance Clear (Clear) Urine pH 7.0 (5.0-8.0) Ur Specific [place] 1.015 (1.005-1.030) Urine Protein Negative (Negative) Urine Glucose (UA) Negative (Negative) Urine Ketones Negative (Negative) Urine Occult Blood Trace-intact H (Negative) Urine Nitrite Negative (Negative) Urine Bilirubin Negative (Negative) Urine Urobilinogen 0.2 (0.2-1.0) Ur Leukocyte Esterase Negative (Negative) Blood Type A POSITIVE Gel Antibody Screen Negative 05/04/16 Range/Units 05:54 WBC 11.31 H (3.98-10.04) K/mm3 RBC 3.94 L (3.98-5.22) M/mm3 Hgb 12.4 (11.2-15.7) gm/L Hct 38.2 (34.1-44.9) % MCV 97.0 H (79.4-94.8) fl MCH 31.5 (25.6-32.2) pg MCHC 32.5 (32.2-35.5) g/dl RDW Std Deviation 53.4 H (36.4-46.3) fL Plt Count 179 L (182-369) K/mm3 MPV 10.3 (9.4-12.3) fl Neut % (Auto) 69.8 (34.0-71.1) % Lymph % (Auto) 20.4 (19.3-51.7) % [place] % (Auto) 8.8 (4.7-12.5) % Eos % (Auto) 0.7 (0.7-5.8) Baso % (Auto) 0.1 (0.1-1.2) % Neut # 7.90 H (1.56-6.13) K/mm3 Lymph # 2.31 (1.18-3.74) K/mm3 [place] # 0.99 H (0.24-0.36) K/mm3 Eos # 0.08 (0.04-0.36) K/mm3 Baso # 0.01 (0.01-0.08) K/mm3 Urine Color (Yellow) Urine Appearance (Clear) Urine pH (5.0-8.0) Ur Specific [place] (1.005-1.030) Urine Protein (Negative) Urine Glucose (UA) (Negative) Urine Ketones (Negative) Urine Occult Blood (Negative) Urine Nitrite (Negative) Urine Bilirubin (Negative) Urine Urobilinogen (0.2-1.0) Ur Leukocyte Esterase (Negative) Blood Type Gel Antibody Screen Med Orders - Current: Current Medications Acetaminophen (Tylenol) 650 mg PO Q4H PRN PRN Reason: mild pain or fever Last Admin: 05/03/16 21:31 Dose: 650 mg Benzocaine/Menthol (Dermoplast Pain Relief [place]) 0 gm TOP ASDIRECTED PRN PRN Reason: Perineal Comfort Measure Docusate Sodium (Colace) 100 mg PO BID PRN PRN Reason: Constipation Emollient Ointment (Lansinoh Hpa) 0 gm TOP ASDIRECTED PRN PRN Reason: Sore Nipples Ibuprofen (Motrin) 600 mg PO Q4H PRN PRN Reason: Mild pain or fever Last Admin: 05/04/16 05:08 Dose: 600 mg Oxycodone/Acetaminophen (Percocet 325-5 Mg) 2 tab PO Q4H PRN PRN Reason: Pain (moderate 4-6) Witch Erendira (Tucks) 1 pad TOP ASDIRECTED PRN PRN Reason: Hemorrhoid pain Discontinued Medications Diphenhydramine HCl (Benadryl) 25 mg IVPUSH Q6H PRN PRN Reason: Pruritis Diphenhydramine HCl (Benadryl) 25 mg IVPUSH Q6H PRN PRN Reason: pruritis Diphtheria/Tetanus/Acell Pertussis (Boostrix) 0.5 ml IM .ONCE ONE Stop: 05/03/16 19:23 Last Admin: 05/04/16 05:13 Dose: 0.5 ml Ephedrine Sulfate (Ephedrine Sulfate) 5 mg IVPUSH ASDIRECTED PRN PRN Reason: Hypotension Ephedrine Sulfate (Ephedrine Sulfate) 5 mg IVPUSH ASDIRECTED PRN PRN Reason: Hypotension Fentanyl (Sublimaze) 100 mcg EPIDUR Q3H PRN PRN Reason: Pain Last Admin: 05/03/16 12:55 Dose: 100 mcg Fentanyl (Sublimaze) 100 mcg EPIDUR Q3H PRN PRN Reason: Pain Fentanyl/Bupivacaine HCl (Fentanyl/Bupivacaine/Ns 2 Mcg-0.125% 100 Ml) 100 ml EPIDUR ASDIRECTED [facility] Last Admin: 05/03/16 12:56 Dose: 100 ml Fentanyl/Bupivacaine HCl (Fentanyl/Bupivacaine/Ns 2 Mcg-0.125% 100 Ml) 100 ml EPIDUR ASDIRECTED [facility] Lactated Ringer's (Ringers, Lactated) Confirm Administered Dose 1,000 mls @ as directed .ROUTE .STK-MED ONE Stop: 05/03/16 10:31 Last Admin: 05/03/16 10:54 Dose: Not Given Lactated Ringer's (Ringers, Lactated) 1,000 mls @ 100 mls/hr IV ASDIRECTED [facility] Last Admin: 05/03/16 15:07 Dose: 100 mls/hr Oxytocin/Lactated Ringer's (Pitocin In Lr 10 Units/1,000 Ml) 10 unit in 1,000 mls @ 500 mls/hr IV TITRATE [facility] Clindamycin Phosphate 900 mg/ (Sodium Chloride) 106 mls @ 100 mls/hr IV Q8H MARGOTH Last Admin: 05/03/16 11:02 Dose: 100 mls/hr Oxytocin/Lactated Ringer's (Pitocin In Lr 10 Units/1,000 Ml) 10 unit in 1,000 mls @ 12 mls/hr IV TITRATE MARGOTH; 2 MUNITS/MIN PRN Reason: Protocol Last Admin: 05/03/16 14:37 Dose: 2 munits/min, 12 mls/hr Nalbuphine HCl (Nubain) 10 mg IVPUSH Q2H PRN PRN Reason: Pain (moderate 4-6) Ondansetron HCl (Zofran) 4 mg IVPUSH Q4H PRN PRN Reason: Nausea/Vomiting Ondansetron HCl (Zofran) 4 mg IVPUSH ONETIME PRN PRN Reason: Nausea/Vomiting Sodium Chloride (Saline Flush) 10 ml FLUSH ASDIRECTED PRN PRN Reason: Keep Vein Open *Q Meaningful Use (DIS) - VTE *Q VTE Criteria *Q: - Stroke *Q Stroke Criteria *Q: - AMI *Q AMI Criteria *Q:
[2016-05-04] MEDS ORDERED: Bupivacaine 0.25% 10 ML SDV ONE (17:34)
[2016-05-04] MEDS: Docusate Sodium 100 MG Cap PO PRN (20:56)
[2016-05-05] MEDS: Ibuprofen 600 MG Tab PO PRN ×2 (04:31→09:13)
[2016-05-05] MEDS: Docusate Sodium 100 MG Cap PO PRN (09:14)
[2016-05-05] MEDS: Acetaminophen 325 MG Tab PO PRN (11:34)
[2016-05-05 11:38] VITALS: BP 136/79
== END 2016-05-05 13:30 | disposition home or self-care (01) | DRG 560 ==
LOC: JD.WOMH 07:48 → JD.OB 09:52 → JD.WOMH 10:36 → JD.OB 10:37 → OBSVTOIN 16:36
PROVIDERS: ADMIT Obstetrics & Gynecology; ATTEND Obstetrics & Gynecology
PROC: 10E0XZZ Delivery of Products of Conception, External Approach (ICD-10-PCS; principal; 2016-05-03)
PROC: 00HU33Z Insertion of Infusion Device into Spinal Canal, Percutaneous Approach (ICD-10-PCS; 2016-05-03)
PROC: 3E0R3CZ (ICD-10-PCS; 2016-05-03)
DX: O80 Encounter for full-term uncomplicated delivery (principal); Z3A.38 38 weeks gestation of pregnancy; Z37.0 Single live birth; Z87.891 Personal history of nicotine dependence; Z88.1 Allergy status to other antibiotic agents
CPT/HCPCS: 36415; 81003; 85025; 86850; 86900; 86901; 90715; A9270-GY; J2590; J3010; J7030; J7120

== ENCOUNTER 2017-07-20 11:27 | Emergency (ER) | payer BC ==
[2017-07-20 11:39] VITALS: BP 141/88
[2017-07-20] MEDS ORDERED: Alum Hydrox/Mag Hydrox/Simeth 30 ML, Lidocaine 2% 15 ML PO ONE ×2 (12:01)
--- NOTE | 2017-07-20 12:15 | EDM.PDOC ---
ED HPI GENERAL MEDICAL PROBLEM - General Chief Complaint: General Stated Complaint: CHEST PAIN Time Seen by Provider: 07/20/17 11:43 Source of Information: Reports: Patient History Limitations: Reports: No Limitations - History of Present Illness INITIAL COMMENTS - FREE TEXT/NARRATIVE: Patient is a 26-year-old female who presents to the ED complaining of left- sided pleuritic chest discomfort and epigastric pain. Patient states this has been going on for the past month. Has intermittent sharp burning type discomfort reproducible with any movements and also pressure. At times she's felt dizzy and lightheaded. She's been experiencing increased anxiety lately. She was evaluated 2 days ago by her [employer] provider placed on Lexapro. She states anxiety has improved but pain persist. States last night consumed a glass of wine precipitating this discomfort to the epigastric region that radiated out into her anterior chest. She denies any acid reflux. She has a history of acid reflux while being . She denies any cough, shortness of breath, fever, bruising or swelling, rash, prior history as such, redness, recent trauma or activity causing this, history of DVT/PE, hemoptysis, dysuria, pain or swelling to lower extremities, or any additional complaints. Patient currently on Lexapro for anxiety and depression. There is no surgical history. She does not smoke. No recreational drug use. Alcohol use occasionally. Treatments [employer]: Reports: Other (see below) Other Treatments [employer]: clinic - Related Data Allergies Allergy/AdvReac Type Severity Reaction Status Date / Time amoxicillin [Amoxicillin] Allergy Hives Verified 07/20/17 11:39 Home Meds: Home Meds Escitalopram Oxalate 1 tab PO DAILY 07/20/17 [History] Past Medical History - Past Health History Medical/Surgical History: Denies Medical/Surgical History D[employer] C[employer] SAWYER History: Reports: Other OB/BYN History: vaginal delivery Psychiatric History: Reports: Anxiety Endocrine/Metabolic History: Reports: Diabetes, Gestational - Past Surgical History Endocrine Surgical History: Reports: None Social & Family History - Family History Family Medical History: Noncontributory - Tobacco Use Smoking Status *Q: Never Smoker Second Hand Smoke Exposure: No - Caffeine Use Caffeine Use: Reports: None - Recreational Drug Use Recreational Drug Use: No ED ROS GENERAL - Review of Systems Review Of Systems: ROS reveals no pertinent complaints other than HPI. ED EXAM, GENERAL - Physical Exam Exam: See Below Exam Limited By: No Limitations General Appearance: Alert, WD/WN, No Apparent Distress Ears: Hearing Grossly Normal Nose: Normal Inspection Throat/Mouth: Normal Voice, No Airway Compromise Head: Atraumatic, Normocephalic Neck: Normal Inspection, Supple Respiratory/Chest: No Respiratory Distress, Lungs Clear, Normal Breath Sounds, No Accessory Muscle Use, Other (faint tenderness along the 3 and 4th intercostal mid clavicular on the left side with palpaiton. no other concerning findings. ) Cardiovascular: Normal Peripheral Pulses, Regular Rate, Rhythm, No Murmur Peripheral Pulses: 4+: Radial (L), Radial (R) GI/Abdominal: Normal Bowel Sounds, Soft, Non-Tender, No Organomegaly, No Distention Back Exam: Normal Inspection Extremities: Normal Inspection, Normal Range of Motion, Non-Tender, No Pedal Edema, Normal Capillary Refill Neurological: Alert, Oriented, CN II-XII Intact, Normal Cognition, No Motor/ Sensory Deficits Psychiatric: Normal Affect, Normal Mood Skin Exam: Warm, Dry, Intact, Normal Color Course - Vital Signs Last Recorded V/S: Last Vital Signs Temp 97.8 F 07/20/17 11:30 Pulse 80 07/20/17 11:30 Resp 18 07/20/17 11:30 BP 141/88 H 07/20/17 11:30 Pulse Ox 96 07/20/17 11:30 - Orders/Labs/Meds Labs: Laboratory Tests 07/20/17 07/20/17 07/20/17 Range/Units 12:30 12:30 12:30 D-Dimer, Quantitative < 0.19 L (0.19-0.50) mg/L C-Reactive Protein < 0.2 (<1.0) mg/dL Lipase 176 (73-393) U/L HCG, Qual Negative (NEGATIVE) Meds: Medications Discontinued Medications Generic Name Dose Route Start Last Admin Trade Name Freq PRN Reason Stop Dose Admin Al Hydroxide/Mg Hydroxide 30 0 ml 07/20/17 12:01 07/20/17 12:10 ml/ Lidocaine HCl 15 ml PO 07/20/17 12:02 45 ml ONETIME ONE Administration - Re-Assessments/Exams Free Text/Narrative Re-Assessment/Exam: Reviewed labs obtained yesterday. CBC, CMP, TSH, and a hemoglobin A1c with no concerrning findings noted. Will order a d-dimer, HCG, CRP, lipase, chest x-ray, and GI cocktail. Suspect cause of pain is associated with acid reflux with alcohol use and also a component of chest wall discomfort. Vital signs are stable. This has been going on for the past month. Thus is why I'm ordering the d-dimer to rule out PE. EKG obtained sinus rhythm at a rate of 79 with MN interval 148 and QTc 427. No acute ST changes noted. 07/20/17 13:17D-dimer within normal limits. CRP within normal limits. Lipase normal. HCG negative. Chest x-ray: Reviewed with no acute abdomen abnormalities noted. Discussed results with the patient. Patient states the mild epigastric pain subsided with the GI cocktail. Thus will place the patient on Prilosec 20 mg every day with Zantac 150 at night as needed. Still complains some left mid clavicular third fourth intercostal chest discomfort mild in nature worse with palpation. Suspect this is more likely chest wall pain thus anti-inflammatories will be the treatment. In addition I do suspect there is a component of increasing anxiety contributing to some of her symptoms. Thus she I have instructed her to continue taking the Lexapro as prescribed. I advised that it may take 4-6 weeks 4 this medication to to reach full effectiveness. Patient will be discharged home with instructions as documented. Departure - Departure Time of Disposition: 13:36 Disposition: Home, Self-Care 01 Condition: Good Clinical Impression: Dyspepsia, Left-sided chest wall pain - Discharge Information Instructions: Chest Wall Pain, [id number] Referrals: Claudia Kapadia TRADE SPECIALIST [Primary Care Provider] - Forms: ED Department Discharge Additional Instructions: Take Prilosec 20 mg every day half-hour prior to eating breakfast in the a.m. May use Zantac 150 milligrams at at bedtime as well for dyspepsia. Refrain from any foods or liquids that cause aggravation. Do not eat or drink within 4 hours of going to bed. In addition suspect discomfort to the left side of the chest is muscle skeletal in nature. Treatment will be anti-inflammatories, Aleve one tablet twice a day and refrain from any activities that cause worsening pain. Continue taking the Lexapro as prescribed. Follow-up with primary care provider next week for reevaluation. Return to the ED if you develop any new or worsening symptoms.
--- NOTE | 2017-07-20 14:00 | CR ---
Chest: Portable view of the chest was obtained. Comparison: No prior chest x-ray. Small azygous lobe is seen. Heart size and mediastinum are normal. Lungs are clear with no acute parenchymal densities. Bony structures are grossly intact. Impression: 1. Nothing acute is seen on portable chest x-ray. Diagnostic code #2
== END 2017-07-20 14:00 | disposition home or self-care (01) ==
LOC: JD.ED 11:27
DX: R10.13 Epigastric pain (principal); Z88.1 Allergy status to other antibiotic agents
CPT/HCPCS: 36415; 71045; 83690; 84703; 85379; 86140; 99285; A9270; 99283

== ENCOUNTER 2018-07-24 11:43 | Inpatient (IN) | payer BC ==
[2018-07-24] MEDS ORDERED: Oxytocin/Lactated Ringers 10 UNIT/1,000 ML BAG IV SCH (12:15)
[2018-07-24] MEDS ORDERED: Nalbuphine 20 MG/ML 1 ML Syringe IVPUSH PRN (12:15)
[2018-07-24] MEDS ORDERED: Lactated Ringers 1,000 ML IV SCH (12:15)
[2018-07-24] MEDS ORDERED: Sodium Chloride 0.9% 10 ML Syringe FLUSH PRN (12:15)
[2018-07-24] MEDS ORDERED: Ondansetron 4 MG/2 ML SDV IVPUSH PRN (12:15)
--- NOTE | 2018-07-24 12:15 | PCM.LDHP ---
L&D History of Present Illness - General Date of Service: 07/24/18 Admit Problem/Dx: Admission Diagnosis/Problem Admission Diagnosis/Problem Source of Information: Patient History Limitations: Reports: No Limitations - History of Present Illness Introduction:: Patient is a 27 y/o at 39 0/7 wks who presents in labor. Contractions had started early Monday AM. Was seen in clinic yesterday and found to be 3 cm dilated. Was advised to continue to monitor and return when contractions worsened. Presents today now with stronger contractions worsening today. No bleeding or LOF - Related Data Allergies/Adverse Reactions: Allergies Allergy/AdvReac Type Severity Reaction Status Date / Time amoxicillin [Amoxicillin] Allergy Hives Verified 07/20/17 11:39 Home Medications: Home Meds L.acidoph,Paracasei, B.lactis [Probiotic] 1 each PO DAILY 07/24/18 [History] Vits #93/Iron Fum/FA [ Formula Tablet] 1 tab PO DAILY 07/24/18 [History] Past Medical History CAR CARDER History: Reports: : 3 Para: 2 LMP (Approximate): Psychiatric History: Reports: Anxiety Endocrine/Metabolic History: Reports: Diabetes, Gestational (2017) - Past Surgical History HEENT Surgical History: Reports: Myringotomy w Tube(s) Endocrine Surgical History: Reports: None Social & Family History - Family History Family Medical History: Noncontributory - Tobacco Use Smoking Status *Q: Never Smoker - Caffeine Use Caffeine Use: Reports: None - Alcohol Use Alcohol Use History: No - Recreational Drug Use Recreational Drug Use: No H&P Review of Systems - Review of Systems: Review Of Systems: See Below General: Reports: No Symptoms Pulmonary: Reports: No Symptoms Cardiovascular: Reports: No Symptoms Gastrointestinal: Reports: No Symptoms Genitourinary: Reports: No Symptoms Musculoskeletal: Reports: No Symptoms Psychiatric: Reports: No Symptoms Neurological: Reports: No Symptoms L&D Exam - Exam Exam: See Below - OB Specific Contraction Intensity: Moderate to Strong Movement: Active Heart Tones: Present Heart Tones per Min: 145 Heart Rate (FHR) Variability: Moderate (6-25 bmp) Presentation: Vertex - Mosley Score Mosley Score Cervix Position: Anterior Mosley Score Consistency: Soft Mosley Score Effacement: >80% Mosley Score Dilation: > 5 cm - Exam General: Alert, Oriented, Cooperative Lungs: Clear to Auscultation, Normal Respiratory Effort Cardiovascular: Regular Rate, Regular Rhythm GI/Abdominal Exam: Soft, Non-Tender Genitourinary: Normal external exam - Patient Data Result Diagrams: 07/24/18 12:53 - Problem List (1) 39 weeks gestation of SNOMED Code(s): 35840237 ICD Code: Z3A.39 - 39 WEEKS GESTATION OF Status: Acute Current Visit: Yes (2) Normal labor SNOMED Code(s): 36974151 ICD Code: O80 - ENCOUNTER FOR FULL-TERM UNCOMPLICATED DELIVERY; Z37.9 - OUTCOME OF DELIVERY, UNSPECIFIED Status: Acute Current Visit: Yes Problem List Initiated/Reviewed/Updated: Yes Assessment/Plan Comment:: Presents in labor. Initial assessment 4-5 cm and then 20 minutes later completely dilated * Labs done * GBS negative * Anticipate
--- NOTE | 2018-07-24 13:24 | PCM.DEL ---
L & D Note - General Info Date of Service: 07/24/18 - Delivery Note Labor: Spontaneous Delivery Outcome: Livebirth Delivery Method: Spontaneous Vaginal Delivery-Single Delivery Mode: Spontaneous Presentation: Left Occiput Anterior (RADHA) Nuchal Cord: None Anesthesia Type: None Amniotic Fluid Description: Clear Episiotomy Type: None Laceration: None Placenta: Intact, Spontaneous Cord: 3 Vessels Estimated Blood Loss: 200 : Bulb Syringe, Stimulated, Warmed, [place] Used Delivery Comments (Free Text/Narrative):: Patient found to be complete and began pushing. With maternal pushing effort head delivered from RADHA presentation. No nuchal cord present. With gentle downward traction the shoulders and body delivered. placed on maternal abdomen. Cord clamped and cut. Cord blood obtained. Placenta allowed time to separate and expelled intact. Inspection of the perineum shows no lacerations - General Info Date of Service: 07/24/18 - Patient Data Lab Results Last 24 Hours: Laboratory Results - last 24 hr 07/24/18 Range/Units 12:53 WBC 8.57 (3.98-10.04) K/mm3 RBC 4.25 (3.98-5.22) M/mm3 Hgb 13.7 D (11.2-15.7) gm/L Hct 40.8 (34.1-44.9) % MCV 96.0 H D (79.4-94.8) fl MCH 32.2 (25.6-32.2) pg MCHC 33.6 (32.2-35.5) g/dl RDW Std Deviation 49.2 H (36.4-46.3) fL Plt Count 197 D (182-369) K/mm3 MPV 9.7 (9.4-12.3) fl Med Orders - Current: Current Medications Lactated Ringer's (Ringers, Lactated) 1,000 mls @ 100 mls/hr IV ASDIRECTED MARGOTH Oxytocin/Lactated Ringer's (Pitocin In Lr 10 Units/1,000 Ml) 10 unit in 1,000 mls @ 500 mls/hr IV .CONTINUOUS MARGOTH Nalbuphine HCl (Nubain) 10 mg IVPUSH Q2H PRN PRN Reason: pain Ondansetron HCl (Zofran) 4 mg IVPUSH Q4H PRN PRN Reason: Nausea/Vomiting Sodium Chloride (Saline Flush) 10 ml FLUSH ASDIRECTED PRN PRN Reason: Keep Vein Open - Problem List & Annotations (1) 39 weeks gestation of SNOMED Code(s): 29232058 Code(s): Z3A.39 - 39 WEEKS GESTATION OF Status: Acute Current Visit: Yes (2) Normal labor SNOMED Code(s): 41425759 Code(s): O80 - ENCOUNTER FOR FULL-TERM UNCOMPLICATED DELIVERY; Z37.9 - OUTCOME OF DELIVERY, UNSPECIFIED Status: Acute Current Visit: Yes (3) Normal delivery at term SNOMED Code(s): 29709986 Code(s): O80 - ENCOUNTER FOR FULL-TERM UNCOMPLICATED DELIVERY Status: Acute Current Visit: No - Problem List Review Problem List Initiated/Reviewed/Updated: Yes - My Orders Last 24 Hours: My Active Orders 07/24/18 12:15 Patient Status [ADT] Routine Activity as Tolerated [RC] PFP Communication Order [RC] ASDIRECTED Non Stress Test [RC] PER UNIT ROUTINE Notify Provider [RC] PFP Notify Provider [RC] PRN Vital Signs [RC] PER UNIT ROUTINE Lactated Ringers [Ringers, Lactated] 1,000 ml IV ASDIRECTED Nalbuphine [Nubain] 10 mg IVPUSH Q2H PRN Ondansetron [Zofran] 4 mg IVPUSH Q4H PRN Oxytocin/Lactated Ringers [Pitocin in LR 10 Units/1,000 ML] 10 unit in 1,000 ml IV .CONTINUOUS Sodium Chloride 0.9% [Saline Flush] 10 ml FLUSH ASDIRECTED PRN Electronic Heart Tones Ext w TOCO [WOMSER] Routine Electronic Heart Tones Internal [WOMSER] Per Unit Routine Peripheral IV Insertion Adult [OM.PC] Routine Resuscitation Status Routine 07/24/18 12:16 Heart Tones [RC] ASDIRECTED Peripheral IV Care [RC] . DIRECTED 07/24/18 12:53 RAPID PLASMA REAGIN,RPR [CHEM] Routine TYPE AND SCREEN [BBK] Stat 07/24/18 13:22 Patient Status Manage Transfer [TRANSFER] Routine 07/24/18 Lunch Regular Diet [DIET] - Assessment Assessment:: 27 y/o G3 now P3003 PPD#0 from at 39 0/7 wks - Plan Plan:: * Routine cares * Encourage breast feeding * Discharge home in 1-2 days
[2018-07-24] MEDS ORDERED: Witch Hazel Medicated Pads 40/Jar TOP PRN (13:40)
[2018-07-24] MEDS ORDERED: Lanolin 100% Cream 7 GM Tube TOP PRN (13:40)
[2018-07-24] MEDS ORDERED: Acetaminophen 325 MG Tab PO PRN (13:40)
[2018-07-24] MEDS ORDERED: Benzocaine/Menthol 20%-0.5% Spray 56 GM Canister TOP PRN (13:40)
[2018-07-24] MEDS ORDERED: Docusate Sodium 100 MG Cap PO PRN (13:40)
[2018-07-24] MEDS: Ibuprofen 600 MG Tab PO PRN (14:06)
[2018-07-25] MEDS: Ibuprofen 600 MG Tab PO PRN ×2 (00:41→09:16)
--- NOTE | 2018-07-25 06:53 | PCM.PNPP ---
- General Info Date of Service: 07/25/18 Functional Status: Reports: Pain Controlled, Tolerating Diet, Ambulating, Urinating - Review of Systems General: Reports: No Symptoms Pulmonary: Reports: No Symptoms Cardiovascular: Reports: No Symptoms Gastrointestinal: Reports: No Symptoms Genitourinary: Reports: No Symptoms Musculoskeletal: Reports: No Symptoms Neurological: Reports: No Symptoms - General Info Date of Service: 07/25/18 - Patient Data Vital Signs - Most Recent: Last Vital Signs Temp 36.4 C 07/25/18 04:52 Pulse 82 07/25/18 04:52 Resp 16 07/25/18 04:52 BP 133/81 07/25/18 04:52 Pulse Ox 98 07/25/18 04:52 Weight - Most Recent: 68.583 kg I&O - Last 24 Hours: Intake & Output 07/24/18 07/24/18 07/25/18 14:59 22:59 06:59 Intake Total 360 Balance 360 Lab Results - Last 24 Hours: Laboratory Results - last 24 hr 07/24/18 07/24/18 07/24/18 Range/Units 12:53 12:53 12:53 WBC 8.57 (3.98-10.04) K/mm3 RBC 4.25 (3.98-5.22) M/mm3 Hgb 13.7 D (11.2-15.7) gm/L Hct 40.8 (34.1-44.9) % MCV 96.0 H D (79.4-94.8) fl MCH 32.2 (25.6-32.2) pg MCHC 33.6 (32.2-35.5) g/dl RDW Std Deviation 49.2 H (36.4-46.3) fL Plt Count 197 D (182-369) K/mm3 MPV 9.7 (9.4-12.3) fl RPR Non-reactive (NONREACTIVE) Blood Type A POSITIVE Gel Antibody Screen Negative Med Orders - Current: Current Medications Acetaminophen (Tylenol) 650 mg PO Q4H PRN PRN Reason: mild pain or fever Benzocaine/Menthol (Dermoplast Pain Relief [place]) 0 gm TOP ASDIRECTED PRN PRN Reason: Perineal Comfort Measure Last Admin: 07/24/18 14:09 Dose: 1 spray Docusate Sodium (Colace) 100 mg PO BID PRN PRN Reason: Constipation Emollient Ointment (Lansinoh Hpa) 0 gm TOP ASDIRECTED PRN PRN Reason: Sore Nipples Ibuprofen (Motrin) 600 mg PO Q6H PRN PRN Reason: Mild pain or fever Last Admin: 07/25/18 00:41 Dose: 600 mg Witch Erendira (Tucks) 1 pad TOP ASDIRECTED PRN PRN Reason: Perineal Comfort Measure Last Admin: 07/24/18 14:10 Dose: 1 pad Discontinued Medications Lactated Ringer's (Ringers, Lactated) 1,000 mls @ 100 mls/hr IV ASDIRECTED MARGOTH Oxytocin/Lactated Ringer's (Pitocin In Lr 10 Units/1,000 Ml) 10 unit in 1,000 mls @ 500 mls/hr IV .CONTINUOUS MARGOTH Last Admin: 07/24/18 13:38 Dose: 500 mls/hr Nalbuphine HCl (Nubain) 10 mg IVPUSH Q2H PRN PRN Reason: pain Ondansetron HCl (Zofran) 4 mg IVPUSH Q4H PRN PRN Reason: Nausea/Vomiting Sodium Chloride (Saline Flush) 10 ml FLUSH ASDIRECTED PRN PRN Reason: Keep Vein Open - Infant Interaction Infant Disposition, : [place] in Room with Family Infant Interaction: Holding Feeding: Breastfed Infant; Nursed Well Support Person: - Recovery Exam Fundal Tone: Firm Fundal Level: 1 Fingerbreadths Below Umbilicus Fundal Placement: Midline Lochia Amount: Small Lochia Color: Rubra/Red Perineum Description: Intact, Minimal Bruising/Swelling Episiotomy/Laceration: None Bladder Status: Voiding - Exam General: Alert, Oriented, Cooperative GI/Abdominal Exam: Soft, Non-Tender Extremities: Normal Inspection Skin: Warm, Dry, Intact - Problem List & Annotations (1) 39 weeks gestation of SNOMED Code(s): 66549851 Code(s): Z3A.39 - 39 WEEKS GESTATION OF Status: Acute Current Visit: Yes (2) Normal labor SNOMED Code(s): 81973288 Code(s): O80 - ENCOUNTER FOR FULL-TERM UNCOMPLICATED DELIVERY; Z37.9 - OUTCOME OF DELIVERY, UNSPECIFIED Status: Acute Current Visit: Yes (3) Normal delivery at term SNOMED Code(s): 91732860 Code(s): O80 - ENCOUNTER FOR FULL-TERM UNCOMPLICATED DELIVERY Status: Acute Current Visit: No - Problem List Review Problem List Initiated/Reviewed/Updated: Yes - My Orders Last 24 Hours: My Active Orders 07/24/18 12:15 Activity as Tolerated [RC] PFP Communication Order [RC] ASDIRECTED Non Stress Test [RC] PER UNIT ROUTINE Notify Provider [RC] PFP Notify Provider [RC] PRN Vital Signs [RC] PER UNIT ROUTINE Resuscitation Status Routine 07/24/18 12:16 Heart Tones [RC] ASDIRECTED Peripheral IV Care [RC] . DIRECTED 07/24/18 13:40 Activity as Tolerated [RC] PER UNIT ROUTINE Vital Signs [RC] 03,09,15,21 Acetaminophen [Tylenol] 650 mg PO Q4H PRN Benzocaine/Menthol [Dermoplast Pain Relief [place]] See Dose Instructions TOP ASDIRECTED PRN Docusate Sodium [Colace] 100 mg PO BID PRN Ibuprofen [Motrin] 600 mg PO Q6H PRN Lanolin [Lansinoh HPA] See Dose Instructions TOP ASDIRECTED PRN Witch Erendira [Tucks] 1 pad TOP ASDIRECTED PRN Assess Lochia [WOMSER] Per Unit Routine Assess Uterine Involution [WOMSER] Per Unit Routine Breast Pump [WOMSER] Per Unit Routine Heat Therapy [OM.PC] PRN Ice Therapy [OM.PC] Per Unit Routine Perineal Care [OM.PC] Per Unit Routine Peripheral IV Discontinue [OM.PC] Routine Sitz Bath [OM.PC] Per Unit Routine 07/24/18 Lunch Regular Diet [DIET] 07/25/18 06:52 Ready for Discharge [RC] PER UNIT ROUTINE 07/25/18 13:40 Heat Therapy [OM.PC] PRN - Assessment Assessment:: 27 y/o G3 now P3003 PPD#1 from at 39 0/7 wks - Plan Plan:: * Routine cares * Encourage breast feeding * Discharge home today
--- NOTE | 2018-07-25 06:54 | PCM.DCSUM1 ---
Discharge Summary - Discharge Data Discharge Date: 07/25/18 Discharge Disposition: Home, Self-Care 01 Condition: Good - Discharge Diagnosis/Problem(s) (1) 39 weeks gestation of SNOMED Code(s): 64639166 ICD Code: Z3A.39 - 39 WEEKS GESTATION OF Status: Acute Current Visit: Yes (2) Normal labor SNOMED Code(s): 04376659 ICD Code: O80 - ENCOUNTER FOR FULL-TERM UNCOMPLICATED DELIVERY; Z37.9 - OUTCOME OF DELIVERY, UNSPECIFIED Status: Acute Current Visit: Yes (3) Normal delivery at term SNOMED Code(s): 39401528 ICD Code: O80 - ENCOUNTER FOR FULL-TERM UNCOMPLICATED DELIVERY Status: Acute Current Visit: No - Patient Summary/Data Complications: None Consults: None Recommended Follow-up Testing/Procedures: Follow up in 3-5 weeks for check Hospital Course: 27 y/o presented at 39 0/7 wks in labor. Progressed rapidly to complete dilation and underwent an uncomplicated . See delivery note. she did well and was discharged home on PPD#1 - Patient Instructions Diet: Regular Diet as Tolerated Activity: As Tolerated Activity, Other: Pelvic rest for 6 weeks Driving: May Drive Today Showering/Bathing: May Shower Showering/Bathing, Other: May Bathe Notify Provider of: Fever, Increased Pain, Swelling and Redness, Drainage, Nausea and/or Vomiting - Discharge Plan *PRESCRIPTION DRUG MONITORING PROGRAM REVIEWED*: Not Applicable *COPY OF PRESCRIPTION DRUG MONITORING REPORT IN PATIENT BONNIE: Not Applicable Home Medications: Home Meds Docusate Sodium [Colace] 100 mg PO BID PRN cap 07/24/18 [Rx] Ibuprofen [Motrin] 600 mg PO Q6H PRN tablet 07/24/18 [Rx] Vits #93/Iron Fum/FA [ Formula Tablet] 1 tab PO DAILY 07/24/18 [History] Referrals: Jenna Fall MD [Primary Care Provider] - (3 weeks for check ) - Discharge Summary/Plan Comment DC Time >30 min.: No - Patient Data Vitals - Most Recent: Last Vital Signs Temp 36.4 C 07/25/18 04:52 Pulse 82 07/25/18 04:52 Resp 16 07/25/18 04:52 BP 133/81 07/25/18 04:52 Pulse Ox 98 07/25/18 04:52 Weight - Most Recent: 68.583 kg I&O - Last 24 hours: Intake & Output 07/24/18 07/24/18 07/25/18 14:59 22:59 06:59 Intake Total 360 Balance 360 Lab Results - Last 24 hrs: Laboratory Results - last 24 hr 07/24/18 07/24/18 07/24/18 Range/Units 12:53 12:53 12:53 WBC 8.57 (3.98-10.04) K/mm3 RBC 4.25 (3.98-5.22) M/mm3 Hgb 13.7 D (11.2-15.7) gm/L Hct 40.8 (34.1-44.9) % MCV 96.0 H D (79.4-94.8) fl MCH 32.2 (25.6-32.2) pg MCHC 33.6 (32.2-35.5) g/dl RDW Std Deviation 49.2 H (36.4-46.3) fL Plt Count 197 D (182-369) K/mm3 MPV 9.7 (9.4-12.3) fl RPR Non-reactive (NONREACTIVE) Blood Type A POSITIVE Gel Antibody Screen Negative Med Orders - Current: Current Medications Acetaminophen (Tylenol) 650 mg PO Q4H PRN PRN Reason: mild pain or fever Benzocaine/Menthol (Dermoplast Pain Relief [place]) 0 gm TOP ASDIRECTED PRN PRN Reason: Perineal Comfort Measure Last Admin: 07/24/18 14:09 Dose: 1 spray Docusate Sodium (Colace) 100 mg PO BID PRN PRN Reason: Constipation Emollient Ointment (Lansinoh Hpa) 0 gm TOP ASDIRECTED PRN PRN Reason: Sore Nipples Ibuprofen (Motrin) 600 mg PO Q6H PRN PRN Reason: Mild pain or fever Last Admin: 07/25/18 00:41 Dose: 600 mg Witch Erendira (Tucks) 1 pad TOP ASDIRECTED PRN PRN Reason: Perineal Comfort Measure Last Admin: 07/24/18 14:10 Dose: 1 pad Discontinued Medications Lactated Ringer's (Ringers, Lactated) 1,000 mls @ 100 mls/hr IV ASDIRECTED MARGOTH Oxytocin/Lactated Ringer's (Pitocin In Lr 10 Units/1,000 Ml) 10 unit in 1,000 mls @ 500 mls/hr IV .CONTINUOUS MARGOTH Last Admin: 07/24/18 13:38 Dose: 500 mls/hr Nalbuphine HCl (Nubain) 10 mg IVPUSH Q2H PRN PRN Reason: pain Ondansetron HCl (Zofran) 4 mg IVPUSH Q4H PRN PRN Reason: Nausea/Vomiting Sodium Chloride (Saline Flush) 10 ml FLUSH ASDIRECTED PRN PRN Reason: Keep Vein Open
[2018-07-25 11:55] VITALS: BP 136/82
== END 2018-07-25 15:40 | disposition home or self-care (01) | DRG 560 ==
LOC: JD.OB 11:43 → OBSVTOIN 13:11 → JD.OB 13:11
PROVIDERS: ADMIT Obstetrics & Gynecology; ATTEND Obstetrics & Gynecology
PROC: 10E0XZZ Delivery of Products of Conception, External Approach (ICD-10-PCS; principal; 2018-07-24)
DX: O80 Encounter for full-term uncomplicated delivery (principal); Z3A.39 39 weeks gestation of pregnancy; Z37.0 Single live birth
CPT/HCPCS: 36415; 59025; 59409; 85027; 86592; 86850; 86900; 86901; A9270-GY; J2590